=== PATIENT | female | born 1980 | race Two or more races ===

== ENCOUNTER 2018-08-18 12:01 | Day surgery (SDC) | payer BC ==
[~2018-08-18 12:01] MED LIST: Lactated Ringers 1,000 ML IV SCH
[2018-08-18] MEDS ORDERED: Glycopyrrolate 0.2 MG/ML SDV ONE (12:06)
[2018-08-18] MEDS ORDERED: Lidocaine 2% 5 ML SDV ONE (12:06)
[2018-08-18] MEDS ORDERED: fentaNYL 250 MCG/5 ML SDV ONE (12:06)
[2018-08-18] MEDS ORDERED: Midazolam 1 MG/ML 2 ML SDV ONE (12:06)
[2018-08-18] MEDS ORDERED: Ondansetron 4 MG/2 ML SDV ONE (12:06)
[2018-08-18] MEDS ORDERED: Propofol 200 MG/20 ML SDV ONE ×2 (12:06→13:06)
--- NOTE | 2018-08-18 12:49 | PCM.PREANE ---
Preanesthetic Assessment - Procedure Proposed Procedure: EGD/Colonoscopy - Anesthesia/Transfusion/Family Hx Anesthesia History: Prior Anesthesia Without Reaction Family History of Anesthesia Reaction: No Transfusion History: No Prior Transfusion(s) - Review of Systems General: No Symptoms Pulmonary: No Symptoms, Other (VIKTORIA) Cardiovascular: No Symptoms Gastrointestinal: No Symptoms Neurological: No Symptoms Other: Reports: None - Physical Assessment O2 Sat by Pulse Oximetry: 97 Respiratory Rate: 16 Vital Signs: Last Vital Signs Temp 97.2 F 08/18/18 12:42 Pulse 85 08/18/18 12:42 Resp 16 08/18/18 12:42 BP 113/71 08/18/18 12:42 Pulse Ox 97 08/18/18 12:42 Height: 5 ft 9 in Weight: 107.501 kg ASA Class: 2 Mental Status: Alert & Oriented x3 Airway Class: Mallampati = 3 Dentition: Reports: Normal Dentition Thyro-Mental Finger Breadths: 2 ROM/Head Extension: Full Lungs: Clear to Auscultation, Normal Respiratory Effort Cardiovascular: Regular Rate, Regular Rhythm - Allergies Allergies/Adverse Reactions: Allergies Allergy/AdvReac Type Severity Reaction Status Date / Time No Known Allergies Allergy Verified 08/15/18 13:10 - Blood Blood Available: No Product(s) Available: None - Anesthesia Plan Pre-Op Medication Ordered: None - Acknowledgements Anesthesia Type Planned: MAC Pt an Appropriate Candidate for the Planned Anesthesia: Yes Alternatives and Risks of Anesthesia Discussed w Pt/Guardian: Yes Pt/Guardian Understands and Agrees with Anesthesia Plan: Yes PreAnesthesia Questionnaire HEENT History: Reports: Other (See Below) Other HEENT History: wears glasses Cardiovascular History: Reports: None Respiratory History: Reports: Sleep Apnea Other Respiratory History: recently diagnosed with sleep apnea, being fitted for CPAP on 08/17/18 Gastrointestinal History: Reports: Other (See Below) Other Gastrointestinal History: occasional reflus Genitourinary History: Reports: None TUBE BENDER History: Reports: Polycystic Ovaries, Musculoskeletal History: Reports: None Neurological History: Reports: Migraines Psychiatric History: Reports: Anxiety, Depression Endocrine/Metabolic History: Reports: Obesity/BMI 30+ Hematologic History: Reports: Anemia Immunologic History: Reports: None Oncologic (Cancer) History: Reports: None Dermatologic History: Reports: None - Past Surgical History Head Surgeries/Procedures: Reports: None HEENT Surgical History: Reports: None Cardiovascular Surgical History: Reports: None Respiratory Surgical History: Reports: None GI Surgical History: Reports: Appendectomy, Cholecystectomy, Hernia, Abdominal Female Surgical History: Reports: Other (See Below) Other Female Surgeries/Procedures: laparotomy for aspiration of ovarian cyst Endocrine Surgical History: Reports: None Neurological Surgical History: Reports: None Musculoskeletal Surgical History: Reports: None Oncologic Surgical History: Reports: None Dermatological Surgical History: Reports: None - HOME MEDS Home Medications: Home Meds Ferrous Sulfate [Iron] 2 tab PO DAILY 08/15/18 [History] Levonorgestrel-Ethin Estradiol [Vienva-28 Tablet] 1 tab PO DAILY 08/15/18 [ History] - CURRENT (IN HOUSE) MEDS Current Meds: Current Medications Lactated Ringer's (Ringers, Lactated) 1,000 mls @ 125 mls/hr IV ASDIRECTED CORAZON Discontinued Medications Fentanyl (Sublimaze) Confirm Administered Dose 250 mcg .ROUTE .STK-MED ONE Stop: 08/18/18 12:07 Glycopyrrolate (Robinul) Confirm Administered Dose 0.4 mg .ROUTE .STK-MED ONE Stop: 08/18/18 12:07 Lidocaine (Xylocaine-Mpf 2%) Confirm Administered Dose 5 ml .ROUTE .STK-MED ONE Stop: 08/18/18 12:07 Midazolam HCl (Versed 1 Mg/Ml) Confirm Administered Dose 2 mg .ROUTE .STK-MED ONE Stop: 08/18/18 12:07 Ondansetron HCl (Zofran) Confirm Administered Dose 4 mg .ROUTE .STK-MED ONE Stop: 08/18/18 12:07 Propofol (Diprivan 20 Ml) Confirm Administered Dose 200 mg .ROUTE .STK-MED ONE Stop: 08/18/18 12:07
--- NOTE | 2018-08-18 13:31 | PCM.OPNOTE ---
- General Post-Op/Procedure Note Date of Surgery/Procedure: 08/18/18 Operative Procedure(s): egd w bx. colonoscopy Findings: see dict [id number] Pre Op Diagnosis: BRBPR Post-Op Diagnosis: Same Anesthesia Technique: Moderate Sedation Primary Surgeon: Eros Mar Complications: None Condition: Good
--- NOTE | 2018-08-18 13:49 | PCM48HPAN ---
Post Anesthesia Note - EVALUATION WITHIN 48HRS OF ANESTHETIC Vital Signs in Normal Range: Yes Patient Participated in Evaluation: Yes Respiratory Function Stable: Yes Airway Patent: Yes Cardiovascular Function Stable: Yes Hydration Status Stable: Yes Pain Control Satisfactory: Yes Nausea and Vomiting Control Satisfactory: Yes Mental Status Recovered: Yes Resp Rate: 20 - COMMENTS/OBSERVATIONS Free Text/Narrative:: no anesthesia problems
--- NOTE | 2018-08-18 18:11 | OR ---
SURGEON: Eros Mar MD DATE OF PROCEDURE: 08/18/2018 PREOPERATIVE DIAGNOSIS: Bright red blood per rectum and hemorrhoids. POSTOPERATIVE DIAGNOSIS: Esophagogastroduodenoscopy diagnosis is gastroesophageal reflux disease, and colonoscopy diagnosis is diverticulosis. PROCEDURE PERFORMED: EGD with biopsy and colonoscopy. DESCRIPTION OF PROCEDURE: EGD: The patient was taken to the endoscopy room, and with the OUTBOARD MOTORBOAT OPERATOR, Diprivan was administered. A well-lubricated EGD scope was gently inserted through the oropharynx, down the esophagus, passing through the gastroesophageal junction, into the stomach. The mucosa was examined upon the passage. Any etiology will be noted. Once in the stomach, we continued to advance to the distal antrum, passed through the pylorus into the second portion of the duodenum. Again, the mucosa was examined for any abnormality and etiology. The scope was then retrieved back to the stomach and then retroflexed to look at the fundus of the stomach. If a biopsy was indicated, we will biopsy the antrum, body, and gastroesophageal junction. The air will be sucked out while the scope is retrieved to reduce the patient's discomfort. The patient tolerated the procedure well. There were no intraoperative complications. Dr. Mar was present through the whole procedure. Prior to surgery, a time-out had been called, the patient identified, procedure identified and antibiotic administered. Colonoscopy: The patient was taken to the endoscopy room. A time out was called, patient identified, and procedure identified. Diprivan was then administrated. Patient went from awake to sleep, hearing doctor talking or door closing is normal. Perineum inspection and digital examination were then performed. A well-lubricated colonoscope was gently inserted through the rectum, advanced past the rectosigmoid junction, the descending colon, splenic flexure, transverse colon, hepatic flexure, ascending colon, arrived to the cecum. Cecum was identified as dictated in the finding. Then the scope was carefully withdrawn while attention was paid to the mucosal surface for any abnormality. Air will be sucked out during the scope withdrawal. At the rectum, retroflexed to examine any rectal diseases, fistula or hemorrhoids. Patient tolerated procedure well. There were no intraoperative complications, and Dr. Mar was present throughout the whole procedure. EGD FINDIN. The patient is easily sedated with OUTBOARD MOTORBOAT OPERATOR and Diprivan, patient is soundly snoring. 2. Oropharynx and proximal esophagus free of disease, infection, inflammation, or stricture. Distal esophagus at GE junction at 40 shows mild salmon- colored change consistent with mild acid reflux. Stomach rugae is normal in appearance, and antrum is very mildly inflamed. Duodenum is grossly normal in appearance, and scope was retroflexed to look at the fundus of the stomach, there is no hiatal hernia. Biopsy done at antrum, body, GE junction at 40 and sucked out air while scope pulling out. COLONOSCOPY FINDIN. Patient is easily sedated with OUTBOARD MOTORBOAT OPERATOR and Diprivan. Patient is soundly snoring. 2. Bowel prep is average with large amount of opaque liquid stool, compromised study, and overall, the bowel prep is pretty good and a couple of spot required irrigation. Colon is rather straight forward. Cecum indicated by ileocecal fold, one-to-one indentation, and appendiceal orifice. Light emittance is not observed. Mucosa examined upon scope pulling out with some irrigation. The patient has mild diverticulosis on the left colon, very, very mild, in a couple of spot. No signs or symptoms of diverticulitis. No polyp, mass, growth, inflammation, stricture, ulceration, AV malformation, none of those. The patient has one tiny internal hemorrhoids, probably not amount to surgery. The patient has around the clock 360 degree very little external hemorrhoids or skin tags, again not amount to surgery. The patient would benefit from repeat colonoscopy in 10 years from today or if clinically indicated otherwise. We will address all the issues in followup. VELASQUEZ / DULCE MARIA /[id number]
== END 2018-08-18 13:56 | disposition home or self-care (01) ==
LOC: MW.SDS 12:01
PROVIDERS: ATTEND Surgery
DX: K20.9 Esophagitis, unspecified (principal); K57.30 Diverticulosis of large intestine without perforation or abscess without bleeding; K29.50 Unspecified chronic gastritis without bleeding; K64.4 Residual hemorrhoidal skin tags; K62.5 Hemorrhage of anus and rectum; D50.9 Iron deficiency anemia, unspecified; E28.2 Polycystic ovarian syndrome; Z79.3 Long term (current) use of hormonal contraceptives
CPT/HCPCS: 43239; 45378; 81025; J2001; J2250; J2405; J2704; J3010; J3490; J7120; 88305; 88312

== ENCOUNTER 2019-08-24 07:52 | Day surgery (SDC) | payer BC ==
[~2019-08-24 07:52] MED LIST changes: +Bupivacaine 0.5% 30 ML SDV ONE
[2019-08-24] MEDS ORDERED: Midazolam 1 MG/ML 2 ML SDV ONE (08:10)
[2019-08-24] MEDS ORDERED: fentaNYL 250 MCG/5 ML SDV ONE (08:10)
[2019-08-24] MEDS ORDERED: Ondansetron 4 MG/2 ML SDV ONE (08:10)
[2019-08-24] MEDS ORDERED: Propofol 200 MG/20 ML SDV ONE (08:10)
[2019-08-24] MEDS ORDERED: Lidocaine 2% 5 ML SDV ONE (08:10)
--- NOTE | 2019-08-24 08:15 | PCM.PREANE ---
Preanesthetic Assessment - Anesthesia/Transfusion/Family Hx Anesthesia History: Prior Anesthesia Reaction Type of Anesthesia Reaction: Excessive Nausea/Vomiting Family History of Anesthesia Reaction: Yes (broyher with airway trauma during intubation, required unexpected admission) Transfusion History: No Prior Transfusion(s) Intubation History: History of Difficulty Intubation (reported difficulty with intubation after prior surgery) - Review of Systems General: No Symptoms Pulmonary: No Symptoms Cardiovascular: No Symptoms Gastrointestinal: No Symptoms Neurological: No Symptoms Other: Reports: None - Physical Assessment NPO Status Date: 08/23/19 Height: 5 ft 9 in Weight: 108.862 kg ASA Class: 2 Mental Status: Alert & Oriented x3 Airway Class: Mallampati = 1 Dentition: Reports: Normal Dentition ROM/Head Extension: Full Lungs: Clear to Auscultation, Normal Respiratory Effort Cardiovascular: Regular Rate, Regular Rhythm - Allergies Allergies/Adverse Reactions: Allergies Allergy/AdvReac Type Severity Reaction Status Date / Time No Known Allergies Allergy Verified 08/21/19 09:37 - Blood Blood Available: No - Anesthesia Plan Pre-Op Medication Ordered: None - Acknowledgements Anesthesia Type Planned: General Anesthesia Pt an Appropriate Candidate for the Planned Anesthesia: Yes Alternatives and Risks of Anesthesia Discussed w Pt/Guardian: Yes Pt/Guardian Understands and Agrees with Anesthesia Plan: Yes Additional Comments: PMH: VIKTORIA, hx of difficult intubation PLAN: get PreAnesthesia Questionnaire HEENT History: Reports: Other (See Below) Other HEENT History: wears glasses Cardiovascular History: Reports: None Respiratory History: Reports: Sleep Apnea Other Respiratory History: recently diagnosed with sleep apnea, being fitted for CPAP on 08/17/18 Gastrointestinal History: Reports: Other (See Below) Other Gastrointestinal History: occasional reflus Genitourinary History: Reports: None 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: Reports: Polycystic Ovaries, Musculoskeletal History: Reports: None Neurological History: Reports: Migraines Psychiatric History: Reports: Anxiety, Depression Endocrine/Metabolic History: Reports: Obesity/BMI 30+ Hematologic History: Reports: Anemia Immunologic History: Reports: None Oncologic (Cancer) History: Reports: None Dermatologic History: Reports: None - Past Surgical History Head Surgeries/Procedures: Reports: None HEENT Surgical History: Reports: None Cardiovascular Surgical History: Reports: None Respiratory Surgical History: Reports: None GI Surgical History: Reports: Appendectomy, Cholecystectomy, Hernia, Abdominal Female Surgical History: Reports: Other (See Below) Other Female Surgeries/Procedures: laparotomy for aspiration of ovarian cyst Endocrine Surgical History: Reports: None Neurological Surgical History: Reports: None Musculoskeletal Surgical History: Reports: None Oncologic Surgical History: Reports: None Dermatological Surgical History: Reports: None - SUBSTANCE USE Smoking Status *Q: Never Smoker - HOME MEDS Home Medications: Home Meds Ferrous Sulfate [Iron] 1 tab PO DAILY 08/15/18 [History] Levonorgestrel-Ethin Estradiol [Vienva-28 Tablet] 1 tab PO DAILY 08/15/18 [ History] Methylphenidate HCl 10 mg PO ASDIRECTED 08/21/19 [History] - CURRENT (IN HOUSE) MEDS Current Meds: Current Medications Lactated Ringer's (Ringers, Lactated) 1,000 mls @ 125 mls/hr IV ASDIRECTED CORAZON Discontinued Medications Bupivacaine HCl (Marcaine 0.5%) Confirm Administered Dose 30 ml .ROUTE .STK-MED ONE Stop: 08/24/19 07:30
[2019-08-24] MEDS ORDERED: Sodium Chloride 0.9% 20 ML ONE (09:01)
[2019-08-24] MEDS ORDERED: ceFAZolin 1 GM Vial ONE (09:01)
[2019-08-24] MEDS ORDERED: Glycopyrrolate 0.2 MG/ML SDV ONE ×3 (09:21→10:20)
[2019-08-24] MEDS ORDERED: Dexamethasone 4 MG/ML 5 ML MDV ONE (09:25)
[2019-08-24] MEDS ORDERED: ePHEDrine 50 MG/ML SDV ONE (09:27)
[2019-08-24] MEDS ORDERED: diphenhydrAMINE 50 MG/ML SDV ONE (09:38)
[2019-08-24] MEDS ORDERED: fentaNYL 100 MCG/2 ML SDV ONE (10:10)
--- NOTE | 2019-08-24 10:54 | PCM.OPNOTE ---
- General Post-Op/Procedure Note Date of Surgery/Procedure: 08/24/19 Operative Procedure(s): laparoscopic left salpingoophorectomy, pelvic washings. Findings: left ovary enlarged to 6 cm, no pelvic adhesions, normal appearing uterus and right tube and ovary. Pre Op Diagnosis: left adnexal mass Post-Op Diagnosis: Same Anesthesia Technique: General ET Tube Primary Surgeon: Madisyn Mckeon Secondary Surgeon: Zaina Rosado Anesthesia Provider: Macho Huerta Measurer: Macho Forrester Pathology: left tube and ovary, pelvic washings Fluid Replacement, Intraop: 700 EBL in mLs: 10 Complications: None known Condition: Good
[2019-08-24] MEDS ORDERED: Ketorolac 30 MG/ML SDV ONE (11:02)
[2019-08-24] MEDS ORDERED: HYDROmorphone 2 MG/ML Syringe ONE (11:03)
[2019-08-24] MEDS ORDERED: Octyl 2-Cyanoacrylate 1 Tube ONE (11:06)
--- NOTE | 2019-08-24 11:16 | PCM.OPNOTE ---
- General Post-Op/Procedure Note Date of Surgery/Procedure: 08/24/19 Operative Procedure(s): Recurrent incisional hernia repair, lysis of adhesions Findings: 1 cm recurrent hernia just right and lateral to the umbilical stalk. Omental adhesions Pre Op Diagnosis: Recurrent incisional hernia Post-Op Diagnosis: same, abdominal adhesions Anesthesia Technique: General ET Tube Primary Surgeon: Zaina Rosado Fluid Replacement, Intraop: 1,400 EBL in mLs: 25 Condition: Good Free Text/Narrative:: Intake & Output 08/23/19 08/24/19 08/24/19 22:59 06:59 14:59 Intake Total 700 Balance 700
[2019-08-24] MEDS ORDERED: Acetaminophen/oxyCODONE 325-5 MG Tab PO PRN (12:11)
--- NOTE | 2019-08-24 12:16 | PCM.POSTAN ---
POST ANESTHESIA ASSESSMENT - MENTAL STATUS Mental Status: Alert, Oriented - VITAL SIGNS Vital Signs: Last Vital Signs Temp 97.2 F 08/24/19 12:00 Pulse 82 08/24/19 12:00 Resp 14 08/24/19 12:00 BP 119/74 08/24/19 12:00 Pulse Ox 94 L 08/24/19 12:00 - RESPIRATORY Respiratory Status: Respiratory Rate WNL, Airway Patent, O2 Saturation Stable - CARDIOVASCULAR CV Status: Pulse Rate WNL, Blood Pressure Stable - GASTROINTESTINAL GI Status: No Symptoms - POST OP HYDRATION Hydration Status: Adequate & Stable
[2019-08-24] MEDS ORDERED: Haloperidol Lactate 5 MG/ML SDV IM ONE (13:39)
--- NOTE | 2019-08-24 13:40 | PCM48HPAN ---
Post Anesthesia Note - EVALUATION WITHIN 48HRS OF ANESTHETIC Vital Signs in Normal Range: Yes Patient Participated in Evaluation: Yes Respiratory Function Stable: Yes Airway Patent: Yes Cardiovascular Function Stable: Yes Hydration Status Stable: Yes Pain Control Satisfactory: Yes Nausea and Vomiting Control Satisfactory: Yes Mental Status Recovered: Yes Vital Signs: Last Vital Signs Temp 97.2 F 08/24/19 12:00 Pulse 71 08/24/19 12:45 Resp 16 08/24/19 12:45 BP 113/61 08/24/19 12:45 Pulse Ox 97 08/24/19 12:45
[2019-08-24] MEDS ORDERED: Haloperidol Lactate 5 MG/ML SDV ONE (13:41)
--- NOTE | 2019-08-24 15:51 | OR ---
SURGEON: ZAINA ROSADO MD DATE OF PROCEDURE: 08/24/2019 PREOPERATIVE DIAGNOSIS: Recurrent incisional hernia. POSTOPERATIVE DIAGNOSIS: Recurrent incisional hernia. PROCEDURE PERFORMED: Recurrent incisional hernia repair. PRIMARY SURGEON: Zaina Rosado MD SECONDARY SURGEON: Madisyn Mckeon MD FLUIDS: 1400 mL of crystalloid. ESTIMATED BLOOD LOSS: 25 mL. FINDINGS: 1 cm recurrent incisional hernia just right and lateral to the umbilical stalk. COMPLICATIONS: None. INDICATIONS: The patient is a 39-year-old female who presented to clinic with periumbilical pain. She had had a previous laparoscopic cholecystectomy above the umbilicus and subsequently developed an incisional hernia. This was repaired at an outside hospital. A CT scan was performed which showed a recurrent incisional hernia measuring 8 mm. She was also incidentally found to have an ovarian cyst. Subsequent followup with the cyst showed that it is growing in size. She met with Dr. Mckeon who consented her for a laparoscopic oophorectomy to be performed at the same time. The patient and I discussed the need for a recurrent hernia repair. I explained the procedure, expected perioperative course, and risks. She verbalized understanding and wishes to proceed. PROCEDURE IN DETAIL: The patient was brought to the OR and placed on the OR table in lithotomy position. General endotracheal anesthesia was induced. The patient was appropriately positioned and padded. A time-out was completed verifying the patient's name, age, date of , allergies, and procedure to be performed. The abdomen was prepped and draped in usual standard fashion. I anesthetized her supraumbilical incision with 0.5% Marcaine plain. A 15 blade was used to make an incision through her old scar. I then used electrocautery and blunt dissection to get down to the level of the fascia. I cleared away the scar tissue and subcutaneous fat around the superior midline fascia, but did not notice a hernia sac. The decision was made to incise the fascia, get into the abdomen, and then feel for the hernia sac. The fascia was grasped with Kiara's and incised sharply along the midline. Upon entering the abdomen, the patient was noted to have omental adhesions along the abdominal wall. These were swept down and incised sharply using Metzenbaum scissors. From the inside, I could then feel the hernia defect, which was just right and lateral to the umbilicus. I extended her skin incision on the right side laterally. I was then able to dissect down to the level of the fascia. A finger was placed inside the abdomen and used to tent up the small hernia sac. It was then opened using electrocautery. The hernia itself was quite small and only measured 1 cm in size. The decision was made to close the hernia at that point in time and then proceed with the oophorectomy. Interrupted 0 Ethilon sutures were used to close the fascial defect. Once this was completed, the supraumbilical midline fascial opening was extended and a GelPort was placed into the abdomen. Dr. Mckeon then took over the case and completed the oophorectomy. Please see her note for further details. Once her portion of the procedure was completed, the GelPort was removed. I then placed my finger back along the right-sided periumbilical fascia. There was some weakness along this area, but the fascial defect appeared to be closed. In order to clear away the tissue to complete to the closure of the supraumbilical fascial incision, we dissected free the remaining omental adhesions. Once these were cleared away, we closed the fascial defect incorporating the peritoneum using a looped 1-0 PDS suture. Great care was taken to not involve any of the surrounding structures. I then closed the fat overlying the fascial site with interrupted 3-0 Vicryl sutures. I then closed the skin with a running 4-0 Monocryl stitch. Dermabond and sterile dressings were applied. The patient tolerated the procedure well and was transferred to the PACU in stable condition. LAURA العراقي /[id number]
--- NOTE | 2019-08-24 16:56 | OR ---
SURGEON: Madisyn Mckeon M.D. DATE OF PROCEDURE: 08/24/2019 PREOPERATIVE DIAGNOSIS: Left adnexal mass. POSTOPERATIVE DIAGNOSIS: Left adnexal mass. PROCEDURE: Laparoscopic left salpingo-oophorectomy with pelvic washings. PRIMARY SURGEON: Madisyn Mckeon MD SUB ACUTE CARE NURSE: Zaina Rosado MD SECONDARY SURGEON: Zaina Rosado MD ANESTHESIA: General endotracheal. FLUIDS: 700 mL of crystalloid. FINDINGS: Left ovary was enlarged to 6 cm. There were no pelvic adhesions. The ureter was identified deep in the pelvis well away from the field of dissection. Postoperatively, hemostasis was identified. COMPLICATIONS: None known. DISPOSITION: Stable to Recovery. BRIEF HISTORY: This is a 39-year-old female. She presents with CT finding of a left ovarian cyst. In the process of evaluation for abdominal pain, CT initially had showed a hernia. She was referred to Dr. Rosado, planning to proceed with hernia repair, but at the same time, Dr. Rosado asked that I evaluate the left ovarian cyst to see if removal would be indicated as access for laparoscopy would be easy at the time of hernia repair. The cyst was monitored with serial ultrasounds and was enlarging, was irregular, 5.7 x 3.4 cm without any free fluid. Therefore, I did recommend proceeding with removal of the cyst. We discussed cystectomy versus left salpingo-oophorectomy. She has had a prior cyst removed on that side. She has done childbearing, and she desires to have the tube and ovary removed on the left, so she therefore consented for laparoscopic left salpingo-oophorectomy with pelvic washings, possible laparotomy. Risks were reviewed including bleeding; infection; injury to bowel, bladder, blood vessels, ureters, or other organs; risk of thromboembolic event; and risk of anesthesia. Understanding these risks, she does desire to proceed. DESCRIPTION OF PROCEDURE: The patient was appropriately positioned in the dorsal lithotomy position. Bladder had been drained with a red Seals catheter. An appropriate time-out was held. Dr. Rosado proceeded with initiating her portion of the procedure including the incision, dissection of the umbilical hernia. Once this was performed, I placed the GelPort. Three ports were placed and the supraumbilical GelPort with the incision, which had been made by Dr. Rosado, and the pelvis was copiously irrigated with normal saline and 200+ mL was collected for pelvic washings. The patient was placed in steep Trendelenburg position. The uterus was elevated. The left tube and ovary were identified. There were no pelvic adhesions. The ureter was identified deep into the pelvis. The infundibulopelvic ligament was identified and doubly cauterized with the LigaSure and then cut proximally. Then proceeding along the upper portion of the broad ligament to the utero-ovarian ligament, which was then cross-clamped with the LigaSure, and cauterized and ligated. The tube and ovary were then free in the pelvis. This was grasped with an Endo Catch bag, which was brought to the GelPort site, and the abdomen was desufflated. The top of the GelPort was removed and the ovary and tube were easily passed through the site without having to rupture the cyst. This was sent to Pathology as specimen of left tube and ovary. A second specimen of pelvic washings was also sent. The pelvis was inspected after the abdomen had been desufflated and then re-insufflated. There was no bleeding. The pelvis was completely hemostatic. Therefore, all the instruments removed as well as the GelPort was removed and the case was turned back over to Dr. Rosado to complete the hernia repair. LORENZA / DULCE MARIA /[id number]
== END 2019-08-24 15:00 | disposition home or self-care (01) ==
LOC: MW.SDS 07:52
PROVIDERS: ATTEND Surgery
DX: D27.1 Benign neoplasm of left ovary (principal); K43.2 Incisional hernia without obstruction or gangrene; K66.0 Peritoneal adhesions (postprocedural) (postinfection); F32.9 Major depressive disorder, single episode, unspecified; D64.9 Anemia, unspecified; E66.9 Obesity, unspecified; F41.9 Anxiety disorder, unspecified; Z79.899 Other long term (current) drug therapy; Z68.35 Body mass index [BMI] 35.0-35.9, adult
CPT/HCPCS: 49565; 58661; 81025; A9270; J0690; J1100; J1170; J1200; J1630; J1885; J2001; J2250; J2405; J2704; J3010; J3490; J7120; 00840; 88104; 88307